=== PATIENT | female | born 1950 | race Caucasian/White ===

== ENCOUNTER 2021-11-30 17:07 | Inpatient (IN) | payer OTHER ==
[~2021-11-30] VITALS: Ht 162.6 cm; Wt 62.1 kg
--- NOTE | ~2021-11-30 | EMS ---
[address] [address] EMS Patient Care Report Name: SYDNEE WICK Room #: REG TAVIA Rodriguez#: [id number] Admission: 11/30/21 Attend Phys: Discharge: Date of : 48 Report #: [id number] THIS REPORT FOR: //name// Report Transmitted: 11/30/2021 18:57 EMS Care Summary [facility] MED-ACT Incident [id number] @ 11/30/2021 16:38 Incident Location [address] [place] [address] [place] [address] Patient SYDNEE WICK Female, 71 Years 1950 Patient Address [address] [place] [address] [place] [address] Patient History Stroke/CVA,Fibromyalgia,Atrial Fibrillation,Chronic Kidney Disease, Patient Allergies No known allergies, Patient Medications Atorvastatin, Apixaban, Diltiazem, Lexapro, Tramadol, Trazodone, Chief Complaint Aggessive Behavior Disposition Transported No Lights/Ovid Dispatch Reason Altered Mental Status Transported To [facility] Narrative Medic 1143 responded to a SNF for a resident acting aggressive towards staff and other residents. [address] [address] EMS Patient Care Report Name: SYDNEE WICK Room #: REG TAVIA Rodriguez#: [id number] Admission: 11/30/21 Attend Phys: Discharge: Date of : 48 Report #: [id number] On scene EMS and Police were briefed by staff prior to going into the locked area with the Pt. EMS found the Pt sitting on the couch with a staff member. Pt was compliant with EMS. Pt was assisted out tp Lobby area and onto cot w/o incident. Pt was secured to cot per protocol. Pt taken to ambulance and loaded w/o incident. V/S were obtained. Pt has no stroke S/S. Pt has a symmetrical smile. Pt has some confusion but is currently in a memory care facility. During transport it became apparent that the Pt was having visual hallucinations. Pt remained in a stable condition during transport. At destination Pt was unloaded and taken inside to ER 7. Report given to receiving nursing staff. Pt was left in a stable condition with nursing at bedside. Initial Vitals @17:02P: 71,R: 18,BP: 122/69,Pain: 0/10,GCS: 14,Temp: 98.7F,SpO2: 96,Revised Trauma: 12, Impression Behavioral/psychiatric episode Procedures @16:55 ALS AssessmentSucceeded Timeline 16:35,Call Received 16:35,Psap Call 16:38,Dispatched 16:38,En Route 16:46,On Scene 16:48,At Patient 16:54,Depart Scene 16:55,ALS Assessment,Succeeded, 17:02,BP: 122/69 M,PULSE: 71,RR: 18 R,SPO2: 96 Ox,ETCO2: ,BG: ,PAIN: 0,GCS: 14, 17:05,At Destination 17:31,Call Closed Disclaimer v1.1 Copyright 2021 [employer] This EMS Care Summary contains data elements from the applicable legal record (which may be displayed differently). It is designed to provide pertinent information for the following purposes: continuity of care, clinical quality, [facility] [address] [place] [address] EMS Patient Care Report Name: SYDNEE WICK Room #: REG TAVIA Rodriguez#: [id number] Admission: 11/30/21 Attend Phys: Discharge: Date of : 48 Report #: [id number] and state data reporting. The complete legal record is available to ED staff and administrators of the receiving hospital in [employer]'s Patient Tracker. All data is provided "as is."
[2021-11-30 17:08] VITALS: BP 116/77
[2021-11-30 17:24] LABS: URINE BILIRUBIN NEGATIVE (Negative); URINE BLOOD NEGATIVE (Negative); URINE CLARITY CLEAR; URINE COLOR YELLOW; URINE GLUCOSE-RANDOM* NEGATIVE (Negative); URINE KETONES NEGATIVE (Negative); URINE LEUKOCYTES-REFLEX NEGATIVE (Negative); URINE NITRITE-REFLEX NEGATIVE (Negative); URINE PROTEIN (DIPSTICK) NEGATIVE (Negative); URINE UROBILINOGEN 0.2 E.U./dl (0.2-1.0)
[2021-11-30] MEDS ORDERED: ELIQUIS5 MG PO (17:35)
[2021-11-30] MEDS ORDERED: LIPITOR40 MG PO (17:35)
[2021-11-30] MEDS ORDERED: LAXATIVE5 M1 PO (17:36)
[2021-11-30] MEDS ORDERED: CARVEDILOL12.5 MG PO (17:36)
[2021-11-30] MEDS ORDERED: BUSPIRONE HCL10 MG PO (17:36)
[2021-11-30] MEDS ORDERED: DILTIAZEM 24HR180 M1 PO (17:37)
[2021-11-30] MEDS ORDERED: LEXAPRO20 MG PO (17:37)
[2021-11-30] MEDS ORDERED: FUROSEMIDE 40 M40 M1 PO (17:37)
[2021-11-30] MEDS ORDERED: LEVO-T75 MCG PO (17:37)
[2021-11-30] MEDS ORDERED: MELATONIN5 M1 PO (17:38)
[2021-11-30] MEDS ORDERED: MAGNESIUM400 M1 PO (17:38)
[2021-11-30] MEDS ORDERED: MIRALAX17 GM PO (17:38)
[2021-11-30 17:39] LABS: ABSOLUTE NEUTROPHILS 6.7 thou/uL (1.4-8.2); BASOPHILS 0.3 % (0.0-2.0); EOSINOPHILS 0.1 % (0.0-3.0); HEMATOCRIT 38.6 % (37.0-47.0); HEMOGLOBIN 12.7 gm/dL (12.0-15.0); LYMPHOCYTES 9.3 % (24.0-44.0); MCH 30.6 pg (26.0-34.0); MCV 92.7 fL (80.0-100.0); PLATELET COUNT 164 thou/uL (150-400); POLYS 85.3 % (36.0-66.0); RBC 4.16 mil/uL (4.20-5.00); RDW 15.5 % (10.5-14.5); WBC 7.9 thou/uL (4.0-11.0)
[2021-11-30] MEDS ORDERED: MULTI VITAMIN1 EACH PO (17:39)
[2021-11-30] MEDS ORDERED: POTASSIUM CHLO20 ME2 PO (17:39)
[2021-11-30] MEDS ORDERED: SEROQUEL 25 MG25 M1 PO (17:40)
[2021-11-30] MEDS ORDERED: TRAMADOL 50 MG50 MG PO (17:40)
[2021-11-30] MEDS ORDERED: TRAZODONE HCL50 MG PO (17:41)
[2021-11-30 17:46] LABS: CALCIUM 9.4 mg/dL (8.5-10.1); CREATININE 1.2 mg/dL (0.6-1.0); POTASSIUM 4.1 mmol/L (3.5-5.1)
[2021-11-30 17:56] LABS: ALBUMIN 3.9 g/dL (3.4-5.0); DIRECT BILIRUBIN 0.3 mg/dL (<0.1-0.2); TOTAL BILIRUBIN 1.2 mg/dL (0.2-1.0); TOTAL PROTEIN 7.6 g/dL (6.4-8.2)
--- NOTE | 2021-11-30 19:10 | NUR ---
Pt report given to SALEEM Simon
[2021-11-30 22:36] VITALS: BP 107/65
[2021-11-30 22:52] VITALS: BP 124/62
--- NOTE | 2021-12-01 00:55 | NUR ---
PATIENT ARRIVED TO ROOM 217 AT 2245 VIA BED. PATIENT ABLE TO MOVE OVER TO BED BY HERSELF. PATIENT ATTACHED TO TELE MONITOR AND VITALS OBTAINED. VSS. PATIENT ORIENTED TO SELF BUT CONFUSED (THIS IS BASELINE R/T HX OF DEMENTIA). PATIENT VERY PLEASANT, NO SIGNS OF HALLUCINATIONS OR AGITATION. PATIENT FOLLOWS COMMANDS AND PERRL. PATENT IV PRESENT, NS STARTED AT 100 CC/HR. PATIENT STILL IN AFIB ON MONITOR BUT WITH CONTROLLED RATE. PATIENT ON RA. NO COMPLAINTS OF PAIN. ATTEMPTED TO ORIENT PATIENT TO UNIT ROUTINES, CALL LIGHT, BED CONTROLS, TV CONTROLS, DIET, ACTIVITY LEVEL, AND POC, BUT PATIENT TOO CONFUSED TO COMPREHEND. PATIENT CURRENTLY STABLE AND RESTING.
[2021-12-01 04:27] LABS: HEMATOCRIT 32.2 % (37.0-47.0); MCHC 33.2 g/dL (28.0-37.0); MCV 93.2 fL (80.0-100.0); RBC 3.45 mil/uL (4.20-5.00); RDW 15.5 % (10.5-14.5)
[2021-12-01 04:34] VITALS: BP 103/73
[2021-12-01 04:34] LABS: CALCIUM 8.6 mg/dL (8.5-10.1)
[2021-12-01 04:43] LABS: HEMOGLOBIN 10.7 gm/dL (12.0-15.0)
[2021-12-01 04:47] LABS: POTASSIUM 3.7 mmol/L (3.5-5.1)
[2021-12-01] MEDS ORDERED: PLAVIX 75 MG TA75 MG PO (06:07)
--- NOTE | 2021-12-01 07:50 | EKG ---
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1950 Requested By: Zeke Vanegas Order Number: [id number] MD: Dudley Abarca Measurements Intervals [place] Rate: 120 P: [place]: QRS: 86 QRSD: 109 T: 57 QT: 387 QTc: 547 Interpretive Statements Atrial fibrillation Borderline right axis deviation Low voltage, extremity and precordial leads Nonspecific T abnrm, anterolateral leads Prolonged QT interval No previous ECG available for comparison Electronically Signed On 12-01-2021 7:50:00 CHAIN CAR[employer] by Dudley Abarca [email or web address] <ELECTRONICALLY SIGNED> By: Dudley Abarca MD, [facility] 12/01/21 0750 42 42 Dudley Abarca MD, FAC /EPI
[2021-12-01 07:55] VITALS: BP 118/68
[2021-12-01 11:45] VITALS: BP 109/58
--- NOTE | 2021-12-01 13:02 | NUR ---
CM MET WITH PT AND AT [facility], AND [facility]YUSH'S @ BEDSIDE. CM INTRODUCED SELF AND THE PT WAS AGREEABLE TO QUESTIONS. DURING THE CM ASSESSMENT, AYUSH ANSWERED MOST OF THE QUESTIONS FOR THE PT. PT AND AYUSH CONFIRM THAT PRIOR TO ADMISSION THE PT HAS BEEN RESIDING AT [facility]. 0 STEPS TO ENTER AND 0 STEPS INSIDE. AYUSH INDICATED THAT THE PT DOES NOT USE ANY ASSISTANCE DEVICES FOR GAIT AND NO 02. PT IS NOT INDEPENDENT WITH ADLS - PRIOR TO [facility] - [facility]USH TOOK CARE OF THE PT'S ADLS. PT LIVED WITH HER NIECE AND VASYL'S UNTIL 3 MONTHS AGO WHEN SHE WAS ACCEPTED AND ADMITTED TO [facility]. AYUSH INDICATED THAT SHE FEELS THE NEED TO CONTINUE CARE FOR PT'S ADLS SHE REPORTS VENICE HAS NOT BEEN "GOOD" - [facility] REPORTS THAT THE PT'S ROOM IS A MESS WITH NO ASSISTANCE, THE PT'S CLOTHES ARE "HORRIBLE AND ALWAYS DIRTY" HAVING NO ASSISTANCE IN DOING LAUNDRY. THE PT'S SON, AKASH, LIVES IN [place] . CM CONFIRMED THIS NUMBER WITH [facility] AND THE CHART. CM ATTEMPTED TO CALL MULTIPLE TIMES, ALWAYS GETTING DIAL-TONE. AYUSH INFORMED CM THAT THE SON IS OFTEN BUSY BUT IF HE GETS A TEXT MESSAGE HE IS QUICK TO RESPOND AND CALL BACK. [facility], CONFIRMED HER PHONE NUMBER . CM CONFIRMED INSURANCE WITH PT AND NIECE - [facility] MEDICARE SENIOR PLAN. PT AND FAMILY ARE AWARE AND AGREEABLE TO PSYCH ([facility]) CONSULT. THE PT INDICATED PREVIOUS INTERACTIONS WITH DR. THOMPSON AND FOUND HIM TO BE VERY SUPPORTIVE, COMFORTING, AND CARING. PT AND HER FAMILY INDICATED THAT UPON D/C THE PT WOULD RETURN TO [facility]. CM OBSERVED THE PATIENT SITTING UPRIGHT IN BED DURING ASSESSMENT, OFTEN APPEARING DISTRACTED BY THE TV. [facility] HAQ, AND HER WERE OBSERVED SITTING AT BEDSIDE DURING ASSESSMENT AND WERE JUDGED TO BE RELIABLE HISTORIANS. THE PT WAS AGREEABLE AND PLEASANT TO CM THROUGHOUT THE ASSESSMENT. UPON ENTRING THE ROOM, THE PT EXPRESSED GRADITUTE TO HER NEICE ABOUT THE CARE THE CMs AND NURSING HAS PROVIDED TO HER. CM SHARED THEY WOULD BE FOLLOWING CASE ALONG CARE TEAM AND KEEP THE PT AND HER FAMILY INFORMED IF NEEDED. THE PT AND HER FAMILY DID NOT INDICATE ANY CONCERNS OR QUESTIONS THEY HAVE AT THIS TIME. CM TO FOLLOW.
--- NOTE | 2021-12-01 15:06 | NUR ---
Assumed care of pt this AM. Pt is oriented to self ONLY. Pt hallucinating, tearful, agitated, restless, & fidgety this AM. Pt denies any pain. SR on the monitor, RA. Pt pulled out IV this AM, received orders that pt does not need IV anymore. Downgrade status. Pt needs much direction, but is directable. PRN medications given as ordered. Frequent rounding. High fall precautions. Pt extremely impulsive throughout day. Pt did shower today.
[2021-12-01 15:40] VITALS: BP 99/53
[2021-12-01 20:15] VITALS: BP 123/64
[2021-12-02 04:45] VITALS: BP 120/69
--- NOTE | 2021-12-02 05:56 | NUR ---
PT ALERT TO SELF, PLEASANTLY CONFUSED WITH AUDITORY AND VISUAL HALLUCINATIONS NOTED; SHE BELIEVES HER DOG IS WITH HER IN HER ROOM. PT DOES NOT REMEMBER TO CALL FOR ASSISTANCE, AND GETS OUT OF BED IMPULSIVELY, THOUGH IS GENERALLY REDIRECTABLE. AROUND HS, PT WAS DIFFICULT TO REDIRECT, WONDERING OUT OF HER ROOM AND INTO THE HALLWAY LOOKING FOR HER DOG. SHE WAS EVENTUALLY REDIRECTED BACK TO HER ROOM, AND GIVEN ATIVAN X1 WITH GOOD EFFECT. PT SLEPT THROUGHOUT MOST OF THE REST OF THE NIGHT, GETTING UP OCCASIONALLY TO VOID. VSS THROUGHOUT SHIFT. WILL CONTINUE TO MONITOR FOR CHANGES.
[2021-12-02 08:13] VITALS: BP 134/114
--- NOTE | 2021-12-02 10:16 | NUR ---
Assumed care of pt this AM. Pt is A&O x1 & on RA. Pt w/ impulsivity & hallucinations. Pt diet advanced today. Pt up to chair today & walked around the unit. Pt given wordsearches to keep busy. Pt denying any pain. VSS, remains afebrile. High fall precautions in place. Frequent rounding.
[2021-12-02 15:30] VITALS: BP 132/32
[2021-12-02 20:15] VITALS: BP 131/80
[2021-12-03 04:20] LABS: ALBUMIN 3.1 g/dL (3.4-5.0); CALCIUM 8.4 mg/dL (8.5-10.1); CREATININE 0.9 mg/dL (0.6-1.0); PHOSPHORUS 3.2 mg/dL (2.5-4.9); POTASSIUM 3.9 mmol/L (3.5-5.1)
[2021-12-03 04:45] VITALS: BP 126/79
[2021-12-03 05:04] LABS: HEMATOCRIT 33.3 % (37.0-47.0); MCH 30.7 pg (26.0-34.0); MCHC 33.1 g/dL (28.0-37.0); MCV 92.8 fL (80.0-100.0); RBC 3.59 mil/uL (4.20-5.00); RDW 15.1 % (10.5-14.5); WBC 4.3 thou/uL (4.0-11.0)
--- NOTE | 2021-12-03 05:57 | NUR ---
Patient has progressed towards outcoe goals. Vital signs stable, remains confused with visual and auditory hallucinations, easily redirected and follows commands. . Very impulsive and does not call for needs to get out of bed, gait steady, fall precautions in place.
[2021-12-03 08:22] VITALS: BP 124/85
[2021-12-03 11:35] VITALS: BP 103/66
[2021-12-03 15:17] VITALS: BP 122/66
--- NOTE | 2021-12-03 19:20 | NUR ---
Pt has been oriented to self, confused, forgetful and having hallucinations. She has been calm and easy to re-direct. Pt is very impulsive; gait is steady; fall precuations in place. VS were stable; pt has slight fever of 98.5; tylenol was given and when temp was rechecked temp was 98.2 Pt ambulate around unit x3. No current concerns. Continue to monitor.
[2021-12-03 19:51] VITALS: BP 121/57
[2021-12-04 04:00] VITALS: BP 129/76
[2021-12-04 09:01] VITALS: BP 134/86
[2021-12-04] MEDS ORDERED: DEPAKOTE 250MG250 M1 PO (10:26)
[2021-12-04 12:00] VITALS: BP 113/54
--- NOTE | 2021-12-04 12:17 | NUR ---
Pt is oriented to self and continues to be confused and impulsive as well as having hallucinations; PRM ativan has been given and is helping to control pt's anxiety. Discharge orders have been placed; CM is working on finding placement for pt and will update team when placement has been found. No current concerns. Continue to monitor.
--- NOTE | 2021-12-04 14:24 | NUR ---
CHART REVIEWED AND DISCUSSED WITH CARE TEAM. PT MEDICALLY STABLE TO DC THIS DAY. BRANDEE CALLED [facility] AT [phone]. SPOKE WITH MEET. MEET INFORMED BRANDEE THEY DO ACCEPT [employer]. HOWEVER SHE INDICATED [employer] [employer] WAS NOT IN OFFICE TODAY. SHE INDICATED SHE COULD NOT FIND REFERRAL FOR INPT ON PT SENT TO THEM ON SATURDAY. BRANDEE INFORMED MEET [facility] SENT REFERRAL AND CONFIRMED WITH [facility]. SHE APOLOGIZED INDICATING SHE COULD NOT FIND IT AND ASKED TO RESEND. SHE CONFIRMED BEDS AVAILABLE FOR ADMIT. 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 CM REFAXED REFERRAL AND DISCHARGE SUMMARY. CM ALSO CALLED TO SPEAK TO REJI WITH [facility]. LEFT MESSAGE. SHE RETURNED CM CALL HOWEVER CM ON ANOTHER CALL AND AWAITING A CALL BACK TO CONFIRM BED AVAILABILITY. CM FOLLOWING FOR DC PLANNING.
[2021-12-04 16:00] VITALS: BP 116/66
[2021-12-04 19:17] VITALS: BP 109/71
--- NOTE | 2021-12-04 21:59 | NUR ---
ASSUMED CARE AT AROUND 1915 HRS. PT IS CONFUSED AND IMPULSIVE.WALKS TO THE BATHROOM, VERY UNSTEADY. CLOSE ONITORING PROVIDED,BEING OBSERVED RIGHT ACROSS FROM MED STN
== END 2021-12-05 | DRG 392 ==
LOC: ER 17:07 → 2N 22:13 → EROBS 22:13 → 2N 22:35
PROVIDERS: Hospitalist; Nurse Practitioner Family; Student in an Organized Health Care Education/Training Program; ADMIT Hospitalist; ATTEND Hospitalist
DX: K52.89 Other specified noninfective gastroenteritis and colitis (principal); I13.0 Hypertensive heart and chronic kidney disease with heart failure and stage 1 through stage 4 chronic kidney disease, or unspecified chronic kidney disease; I25.10 Atherosclerotic heart disease of native coronary artery without angina pectoris; F03.90 Unspecified dementia, unspecified severity, without behavioral disturbance, psychotic disturbance, mood disturbance, and anxiety; I48.91 Unspecified atrial fibrillation; N18.9 Chronic kidney disease, unspecified; F29 Unspecified psychosis not due to a substance or known physiological condition; R53.81 Other malaise; R63.4 Abnormal weight loss; G47.00 Insomnia, unspecified; F41.9 Anxiety disorder, unspecified; I50.9 Heart failure, unspecified; E11.22 Type 2 diabetes mellitus with diabetic chronic kidney disease; Z20.822 Contact with and (suspected) exposure to COVID-19; Z79.01 Long term (current) use of anticoagulants; Z86.73 Personal history of transient ischemic attack (TIA), and cerebral infarction without residual deficits; Z68.23 Body mass index [BMI] 23.0-23.9, adult; I25.2 Old myocardial infarction
CPT/HCPCS: 10081